=== PATIENT | male | born 1970 | race Two or more races ===

== ENCOUNTER 2021-11-05 18:02 | Emergency (ER) | payer MEDICARE, MEDICAID ==
[~2021-11-05] VITALS: Ht 175.3 cm; Wt 63.6 kg
[~2021-11-05 18:02] MED LIST: ALBU8.5H17 IH; ALPR0.257 PO; ASPI-845 PO; ATOR10TA70 PO; BENA20TA82 PO; BENA40TA72 PO; CALC-854 PO; DILT120C62 PO; DILT120T3 PO; DULO-31 PO; ESOM40CA PO; ESOM40CA54 PO; GABA-532 PO; INSU100C10 SQ; INSU100I31 SQ; INSU100V36 SQ; KEN0.1O TP; LANTUS SQ; METH500T PO; METO10TA3 PO; METO5TAB98 PO; ONDA4TAB6 PO; PREG150C46 PO; PREG75CA30 PO; SUCR1TAB PO
[2021-11-05 18:09] VITALS: BP 209/104
== END 2021-11-05 20:44 | disposition home or self-care (01) ==
LOC: ER 18:04
DX: S62.316A Displaced fracture of base of fifth metacarpal bone, right hand, initial encounter for closed fracture (principal); M79.642 Pain in left hand; I10 Essential (primary) hypertension; K21.9 Gastro-esophageal reflux disease without esophagitis; E11.9 Type 2 diabetes mellitus without complications; G89.29 Other chronic pain; F12.90 Cannabis use, unspecified, uncomplicated; Z98.890 Other specified postprocedural states; Z72.89 Other problems related to lifestyle; Z88.5 Allergy status to narcotic agent; Z79.82 Long term (current) use of aspirin; Z79.4 Long term (current) use of insulin; Z79.899 Other long term (current) drug therapy; X58.XXXA Exposure to other specified factors, initial encounter; Y93.89 Activity, other specified; Y92.89 Other specified places as the place of occurrence of the external cause; Y99.8 Other external cause status
CPT/HCPCS: 29125; 73130; 99283

== ENCOUNTER 2023-05-30 23:58 | Emergency (ER) | payer MEDICARE, MEDICAID ==
[~2023-05-30] VITALS: Ht 175.3 cm; Wt 63.6 kg
[~2023-05-30 23:58] MED LIST changes: -PREG150C46 PO; +PREG150C47 PO
[2023-05-31 00:30] VITALS: TEMP 98.9
[2023-05-31] MEDS ORDERED: normal saline 1000ML IV soln IVB ONE ×2 (00:50→02:05)
[2023-05-31 01:08] LABS: BASOPHILS # (AUTO) 0.1 X10'3 (0-0.2); BASOPHILS % (AUTO) 1.1 % (0-1); EOSINOPHILS # (AUTO) 0.4 X10'3 (0-0.9); EOSINOPHILS % (AUTO) 4.7 % (0-6); HEMOGLOBIN 14.7 g/dl (14.0-17.9); LYMPHOCYTES # (AUTO) 2.3 X10'3 (1.1-4.8); LYMPHOCYTES % (AUTO) 30.5 % (21-51); MEAN CORPUSCULAR HEMOGLOBIN 31.1 PG (27.0-31.0); MEAN CORPUSCULAR HGB CONC 34.3 g/dL (33.0-36.5); MEAN CORPUSCULAR VOLUME 90.8 FL (78-98); MEAN PLATELET VOLUME 7.3 FL (7.4-10.4); MONOCYTES # (AUTO) 0.6 X10'3 (0-0.9); MONOCYTES % (AUTO) 7.7 % (2-12); NEUTROPHILS # (AUTO) 4.3 X10'3 (1.8-7.7); PLATELET COUNT 245 X10'3 (140-440); RED BLOOD COUNT 4.73 X10'6 (4.70-6.10); RED CELL DISTRIBUTION WIDTH 14.6 % (11.5-14.5); WHITE BLOOD COUNT 7.6 X10'3 (4.5-11.0)
[2023-05-31 01:11] LABS: BILIRUBIN,URINE NEGATIVE (Neg); CLARITY,URINE CLEAR (Clear); COLOR,URINE YELLOW (Yellow); GLUCOSE, URINE >=1000 mg/dl (Neg); KETONES,URINE NEGATIVE (Neg); LEUKOCYTE ESTERASE ,URINE NEGATIVE (Neg); NITRITES, URINE NEGATIVE (Neg); OCCULT BLOOD,URINE TRACE-INTACT (Neg); PROTEIN,URINE 30 mg/dl (Neg); UROBILINOGEN,URINE 0.2 E.U/dL (0.2-1.0)
[2023-05-31 01:21] LABS: UA COLLECTION TYPE CLN CATCH MIDSTREAM
[2023-05-31 01:23] LABS: WBC,URINE 0-4 /HPF (0-4)
[2023-05-31 01:24] LABS: AMORPHOUS URATES 1+; BACTERIA,URINE NONE SEEN /HPF (Neg); MUCUS STRANDS FEW /LPF (Neg); RBC,URINE 0-2 /HPF (0-2); SQUAMOUS EPITHELIAL CELL,UR NONE SEEN /LPF (FEW)
[2023-05-31 01:32] LABS: ALANINE AMINOTRANSFERASE 34 U/L (12-78); ALBUMIN 3.4 G/DL (3.4-5.0); ALKALINE PHOSPHATASE 78 IU/L (46-116); ANION GAP 2 (8-16); ASPARTATE AMINO TRANSFERASE 21 U/L (10-37); BILIRUBIN,TOTAL 0.3 MG/DL (0.1-1.0); BLOOD UREA NITROGEN 20 MG/DL (7-18); CALCIUM 9.2 MG/DL (8.5-10.1); CHLORIDE 98 MMOL/L (99-107); CREATININE 1.11 MG/DL (0.60-1.10); POTASSIUM 4.3 MMOL/L (3.5-5.1); SODIUM 132 MMOL/L (135-145); TOTAL CARBON DIOXIDE 31.6 MMOL/L (24-32); TOTAL PROTEIN 6.7 G/DL (6.4-8.2); eCRCL 70 ML/MIN; eGFR 70 ML/MIN
[2023-05-31 01:34] LABS: LIPASE 10 U/L (16-77)
[2023-05-31 01:38] LABS: GLUCOSE 519 MG/DL (70-104)
[2023-05-31] MEDS ORDERED: morphine 4 MG/ML inj SYRINge IV ONE (02:05)
--- NOTE | 2023-05-31 06:00 | NUR ---
PT'S CAME OUT TO INFORM STAFF, PT WANTS COFFEE OR IS GOING TO LEAVE, DR CANALES CONFIRMED PT IS NPO, AND SAID I, HIS NURSE HAS TO GO IN AND TELL HIM. PT STATES THATS NOT WHAT HE SAID, AND IS MOANING ANG GROANING ABOUT HIS ABD PAIN, AND DENIED ANY PAIN MEDICINE AT THIS TIME. EXPLAINED THAT WE NEED HIS CT REPORT AND HAVE NO CONTROL WHEN IT WILL BE AVAILABLE, AND THAT WE HAVE CALLED THE RADIOLOGY DR THAT WE ARE NEEDING THE CT REPORT
[2023-05-31] MEDS ORDERED: Cipro HC otic suspension 10ML bottle EACH EAR SCH (06:30)
[2023-05-31] MEDS ORDERED: insulin regular, human 10 units/0.1 ml syringe SQ ONE (06:35)
[2023-05-31] MEDS ORDERED: HYDROmorphone 1 mg/ml syringe IV ONE (07:55)
[2023-05-31 08:05] VITALS: BP 176/94; PULSE 65; RESP 16; O2SAT 95
[2023-05-31] MEDS ORDERED: ringers solution, lacted 1,000 ML IV ONE (08:05)
[2023-05-31] MEDS ORDERED: insulin regular, human 10 units/0.1 ml syringe IV ONE (08:05)
[2023-05-31] MEDS ORDERED: dicyclomine 10 MG capsule PO ONE (10:05)
[2023-05-31] MEDS ORDERED: bisacodyl 10mg suppository rectal RC ONE (10:05)
--- NOTE | 2023-05-31 10:05 | NUR ---
pt up ambulating to restroom without any assistance.
[2023-05-31 10:56] LABS: EOSINOPHILS # (AUTO) 0.3 X10'3 (0-0.9); MEAN CORPUSCULAR HEMOGLOBIN 30.5 PG (27.0-31.0)
[2023-05-31 10:59] LABS: BASOPHILS # (AUTO) 0.1 X10'3 (0-0.2); EOSINOPHILS % (AUTO) 4.3 % (0-6); HEMATOCRIT 44.4 % (42.0-52.0); LYMPHOCYTES # (AUTO) 2.1 X10'3 (1.1-4.8); LYMPHOCYTES % (AUTO) 29.2 % (21-51); MEAN CORPUSCULAR HGB CONC 33.8 g/dL (33.0-36.5); MEAN CORPUSCULAR VOLUME 90.3 FL (78-98); MEAN PLATELET VOLUME 7.8 FL (7.4-10.4); MONOCYTES # (AUTO) 0.6 X10'3 (0-0.9); MONOCYTES % (AUTO) 8.6 % (2-12); NEUTROPHILS % (AUTO) 56.9 % (42-75); PLATELET COUNT 263 X10'3 (140-440); RED BLOOD COUNT 4.92 X10'6 (4.70-6.10); RED CELL DISTRIBUTION WIDTH 14.6 % (11.5-14.5); WHITE BLOOD COUNT 7.1 X10'3 (4.5-11.0)
--- NOTE | 2023-05-31 11:09 | NUR ---
pt became angry and aggressive when told he could not go outside to smoke, pt left md tim aware.
[2023-05-31 11:21] LABS: ALANINE AMINOTRANSFERASE 34 U/L (12-78); ALBUMIN 3.1 G/DL (3.4-5.0); ALKALINE PHOSPHATASE 72 IU/L (46-116); ANION GAP 4 (8-16); ASPARTATE AMINO TRANSFERASE 16 U/L (10-37); BILIRUBIN,TOTAL 0.3 MG/DL (0.1-1.0); BLOOD UREA NITROGEN 17 MG/DL (7-18); BUN/CREATININE RATIO 23.9 (10.0-20.0); CALCIUM 8.7 MG/DL (8.5-10.1); CHLORIDE 106 MMOL/L (99-107); CREATININE 0.71 MG/DL (0.60-1.10); GLUCOSE 187 MG/DL (70-104); POTASSIUM 3.8 MMOL/L (3.5-5.1); SODIUM 138 MMOL/L (135-145); TOTAL CARBON DIOXIDE 27.6 MMOL/L (24-32); TOTAL PROTEIN 6.3 G/DL (6.4-8.2); eCRCL 110 ML/MIN; eGFR > 90 ML/MIN
== END 2023-05-31 11:12 | disposition left against medical advice (07) ==
LOC: ER 23:58
DX: R10.31 Right lower quadrant pain (principal); R10.32 Left lower quadrant pain; E86.0 Dehydration; E11.43 Type 2 diabetes mellitus with diabetic autonomic (poly)neuropathy; K31.84 Gastroparesis
CPT/HCPCS: 36415; 74176; 80053; 81001; 82948; 83690; 85025; 96361; 96374; 96375; 99285; J1170; J1815; J2270; J7030; J7120

== ENCOUNTER 2023-06-01 01:03 | Emergency (ER) | payer MEDICARE, MEDICAID ==
[~2023-06-01] VITALS: Ht 175.3 cm; Wt 63.6 kg
[2023-06-01 01:50] LABS: BASOPHILS # (AUTO) 0.1 X10'3 (0-0.2); BASOPHILS % (AUTO) 0.7 % (0-1); EOSINOPHILS # (AUTO) 0.2 X10'3 (0-0.9); EOSINOPHILS % (AUTO) 1.8 % (0-6); HEMATOCRIT 44.6 % (42.0-52.0); HEMOGLOBIN 15.4 g/dl (14.0-17.9); LYMPHOCYTES # (AUTO) 1.8 X10'3 (1.1-4.8); LYMPHOCYTES % (AUTO) 20.2 % (21-51); MEAN CORPUSCULAR HEMOGLOBIN 31.2 PG (27.0-31.0); MEAN CORPUSCULAR HGB CONC 34.5 g/dL (33.0-36.5); MEAN CORPUSCULAR VOLUME 90.3 FL (78-98); MEAN PLATELET VOLUME 7.2 FL (7.4-10.4); MONOCYTES # (AUTO) 0.5 X10'3 (0-0.9); MONOCYTES % (AUTO) 5.2 % (2-12); NEUTROPHILS # (AUTO) 6.4 X10'3 (1.8-7.7); NEUTROPHILS % (AUTO) 72.1 % (42-75); PLATELET COUNT 248 X10'3 (140-440); RED BLOOD COUNT 4.94 X10'6 (4.70-6.10); RED CELL DISTRIBUTION WIDTH 14.4 % (11.5-14.5); WHITE BLOOD COUNT 8.9 X10'3 (4.5-11.0)
[2023-06-01 01:57] LABS: ALANINE AMINOTRANSFERASE 33 U/L (12-78); ALBUMIN 3.6 G/DL (3.4-5.0); ALBUMIN/GLOBULIN RATIO 1.1 (1.1-1.5); ALKALINE PHOSPHATASE 81 IU/L (46-116); ANION GAP 7 (8-16); ASPARTATE AMINO TRANSFERASE 17 U/L (10-37); BILIRUBIN,TOTAL 0.5 MG/DL (0.1-1.0); BLOOD UREA NITROGEN 18 MG/DL (7-18); CALCIUM 9.5 MG/DL (8.5-10.1); CHLORIDE 100 MMOL/L (99-107); GLUCOSE 342 MG/DL (70-104); POTASSIUM 4.4 MMOL/L (3.5-5.1); SODIUM 133 MMOL/L (135-145); eCRCL 86 ML/MIN; eGFR 89 ML/MIN
[2023-06-01] MEDS ORDERED: normal saline 1000ML IV soln IVB ONE (02:00)
[2023-06-01] MEDS ORDERED: iohexol 350MG/ML 100ml bottle IV ONE (02:16)
--- NOTE | 2023-06-01 02:19 | NUR ---
Patient to CT
--- NOTE | 2023-06-01 02:35 | NUR ---
Patient back from CT and connected to monitor. Patient provided with warm blankets by CT. Patient connected back to monitor and IV fluids.
[2023-06-01] MEDS ORDERED: acetaminophen 1,000mg/100ml IV 100 ML IV SCH (04:12)
[2023-06-01 04:34] VITALS: TEMP 97.6
--- NOTE | 2023-06-01 04:36 | NUR ---
Patient provided with warm blankets. Vital sign monitor silenced per patient request.
--- NOTE | 2023-06-01 04:36 | NUR ---
Patient resting in bed with eye closed. Respirations are even and unlabored.
--- NOTE | 2023-06-01 05:15 | NUR ---
Patient resting in bed quietly with eyes closed. Respirations are even and unlabored. Pt in no acute distress. , Bruna/Dixie, asked RN to record number if patient requested her at bedside. stated she is in their vehicle in the parking lot. Wie's numer is [phone].
[2023-06-01 06:44] VITALS: BP 180/92; PULSE 77; RESP 18; O2SAT 96
[2023-06-01] MEDS ORDERED: chlorproMAZINE 25mg/ml inj. IM ONE (07:05)
[2023-06-01 07:06] LABS: BILIRUBIN,URINE NEGATIVE (Neg); CLARITY,URINE CLEAR (Clear); COLOR,URINE YELLOW (Yellow); GLUCOSE, URINE 500 mg/dl (Neg); KETONES,URINE 40 mg/dl (Neg); LEUKOCYTE ESTERASE ,URINE NEGATIVE (Neg); NITRITES, URINE NEGATIVE (Neg); OCCULT BLOOD,URINE SMALL (Neg); PH,URINE 5.5 (4.8-8.0); PROTEIN,URINE 100 mg/dl (Neg); UROBILINOGEN,URINE 0.2 E.U/dL (0.2-1.0)
[2023-06-01 07:13] LABS: UA COLLECTION TYPE VOIDED
[2023-06-01 07:16] LABS: BACTERIA,URINE FEW /HPF (Neg); SQUAMOUS EPITHELIAL CELL,UR FEW /LPF (FEW); WBC,URINE 0-4 /HPF (0-4)
[2023-06-01 07:24] LABS: URINE AMPHETAMINE SCREEN NEGATIVE (Neg); URINE BARBITUATE SCREEN NEGATIVE (Neg); URINE BENZODIAZEPINES SCREEN NEGATIVE (Neg); URINE CANNABINOID SCREEN POSITIVE (Neg); URINE COCAINE SCREEN NEGATIVE (Neg); URINE METHADONE SCREEN NEGATIVE (Neg); URINE OPIATE SCREEN POSITIVE (Neg); URINE PHENCYCLIDINE SCREEN NEGATIVE (Neg)
== END 2023-06-01 07:12 | disposition left against medical advice (07) ==
LOC: ER 01:04
DX: R10.9 Unspecified abdominal pain (principal); K59.00 Constipation, unspecified
CPT/HCPCS: 36415; 74174; 80053; 80305; 81001; 82948; 83605; 85025; 96361; 96365; 96366; 99285; J0131; J3490; J7030; Q9967